=== PATIENT | male | born 1965 | race Caucasian/White ===

== ENCOUNTER 2019-06-13 23:00 | Emergency (ER) | payer BC ==
[2019-06-13 23:06] VITALS: RESP 18
[2019-06-13] MEDS ORDERED: SODIUM CHLORIDE 0.9% 1,000 ML IV STA (23:16)
[2019-06-13] MEDS ORDERED: ONDANSETRON 4 MG/2 ML VIAL IVP STA (23:16)
[2019-06-13] MEDS ORDERED: SODIUM CHLORIDE 0.9% 500 ML 500 ML IV STA (23:16)
[2019-06-13] MEDS ORDERED: HYDROmorphone 0.5 MG/0.5 ML SYRINGE IVP STA (23:16)
[2019-06-13] MEDS ORDERED: KETOROLAC 30 MG/ML 1 ML VIAL IVP STA (23:16)
--- NOTE | 2019-06-13 23:26 | ED ---
Abdominal Pain HPI - General Chief Complaint: Abdominal Pain Stated Complaint: Abd Pain Time Seen by Provider: 06/13/19 23:10 Source: patient Mode of arrival: wheelchair Limitations: no limitations - History of Present Illness Initial Comments: 53-year-old male patient presents to the emergency department today for evaluation of abdominal pain. Patient states yesterday he started having pain to the left flank region which is now wrapped around to his midepigastric region and the right lower quadrant. Patient states he has been nauseated and did vom it twice this evening. He denies any fever or chills. Denies any chest pain or shortness of breath. He denies any hematuria, dysuria, urinary frequency, urinary urgency, urinary retention. Denies any hematochezia or melena. Denies hematemesis. Patient does admit to drinking alcohol daily basis. Denies any street drug use. Patient denies any recent rash, diarrhea, constipation, numbness, tingling, dizziness, weakness, headache, visual changes, or any other complaints. - Related Data Previous Rx's Medication Instructions Recorded Hydrocodone/Acetaminophen [Conifer 1 tab PO Q6HR PRN #12 tab 06/14/19 5-325] Ibuprofen [Motrin] 600 mg PO Q8HR PRN #30 tab 06/14/19 Ondansetron [Zofran ODT] 4 mg PO Q8HR PRN #10 tab 06/14/19 Tamsulosin HCl [Flomax] 0.4 mg PO DAILY #7 cap 06/14/19 Allergies Allergy/AdvReac Type Severity Reaction Status Date / Time No Known Allergies Allergy Verified 06/13/19 23:35 Review of Systems ROS Statement: Those systems with pertinent positive or pertinent negative responses have been documented in the HPI. ROS Other: All systems not noted in ROS Statement are negative. Past Medical History Past Medical History: No Reported History History of Any Multi-Drug Resistant Organisms: None Reported Past Surgical History: Joint Replacement Additional Past Surgical History / Comment(s): right knee, Past Psychological History: No Psychological Hx Reported Smoking Status: Current every day smoker Past Alcohol Use History: Daily Past Drug Use History: None Reported General Exam Limitations: no limitations General appearance: alert, in no apparent distress, other (Physical well- developed, well-nourished adult male patient in no acute distress. Vital signs upon presentation are temperature 98.3F, pulse 96, respirations 18, blood pressure 168/94, pulse ox 98% on room air.) Eye exam: Present: normal appearance, PERRL, EOMI. Absent: scleral icterus, conjunctival injection, periorbital swelling ENT exam: Present: normal exam, normal oropharynx, mucous membranes moist Respiratory exam: Present: normal lung sounds bilaterally. Absent: respiratory distress, wheezes, rales, rhonchi, stridor Cardiovascular Exam: Present: regular rate, normal rhythm, normal heart sounds. Absent: systolic murmur, diastolic murmur, rubs, gallop, clicks GI/Abdominal exam: Present: soft, tenderness (Midepigastric tenderness), normal bowel sounds. Absent: distended, guarding, rebound, rigid Neurological exam: Present: alert, oriented X3, CN II-XII intact Psychiatric exam: Present: normal affect, normal mood Skin exam: Present: warm, dry, intact, normal color. Absent: rash Course Vital Signs 06/13/19 23:02 Temperature 98.3 F Pulse Rate 96 Respiratory 18 Rate Blood Pressure 168/94 O2 Sat by Pulse 98 Oximetry Medical Decision Making - Medical Decision Making 53-year-old male patient presented to the emergency department today for evaluation of left flank pain with midepigastric pain and left lower quadrant p ain. Physical examination did reveal midepigastric tenderness. Left CVA tenderness. Urinalysis showed no acute abnormalities. Labs reviewed and showed leukocytosis with a white blood cell count of 14.7. CT abdomen and pelvis was obtained and showed evidence for a 7 mm kidney stone on the left side at the UPJ. Patient was given IV medications and fluids here in the emergency department. Upon reevaluation he is resting comfortably. He'll be discharged with Flomax, pain medication, nausea medication. Is instructed to follow-up with urologist for recheck as soon as possible. Return parameters were discussed in detail. He verbalizes understanding and agrees with this plan. - Lab Data Result diagrams: 06/13/19 23:30 06/13/19 23:30 Lab Results 06/13/19 06/13/19 06/13/19 Range/Units 23:30 23:30 23:30 WBC 14.7 H (3.8-10.6) k/uL RBC 4.82 (4.30-5.90) m/uL Hgb 15.8 (13.0-17.5) gm/dL Hct 47.7 (39.0-53.0) % MCV 98.8 (80.0-100.0) fL MCH 32.7 (25.0-35.0) pg MCHC 33.1 (31.0-37.0) g/dL RDW 12.3 (11.5-15.5) % Plt Count 251 (150-450) k/uL Neutrophils % 83 % Lymphocytes % 7 % Monocytes % 5 % Eosinophils % 1 % Basophils % 3 % Neutrophils # 12.2 H (1.3-7.7) k/uL Lymphocytes # 1.0 (1.0-4.8) k/uL Monocytes # 0.8 (0-1.0) k/uL Eosinophils # 0.1 (0-0.7) k/uL Basophils # 0.4 H (0-0.2) k/uL Sodium 138 (137-145) mmol/L Potassium 4.3 (3.5-5.1) mmol/L Chloride 104 (98-107) mmol/L Carbon Dioxide 24 (22-30) mmol/L Anion Gap 10 mmol/L BUN 10 (9-20) mg/dL Creatinine 1.03 (0.66-1.25) mg/dL Est GFR (CKD-EPI)AfAm >90 (>60 ml/min/1.73 sqM) Est GFR (CKD-EPI)NonAf 83 (>60 ml/min/1.73 sqM) Glucose 128 H (74-99) mg/dL Calcium 9.0 (8.4-10.2) mg/dL Total Bilirubin 0.8 (0.2-1.3) mg/dL AST 44 (17-59) U/L ALT 51 (21-72) U/L Alkaline Phosphatase 109 (38-126) U/L Total Protein 8.0 (6.3-8.2) g/dL Albumin 4.6 (3.5-5.0) g/dL Amylase 39 (30-110) U/L Lipase 33 (23-300) U/L Urine Color Yellow Urine Appearance Clear (Clear) Urine pH 6.5 (5.0-8.0) Ur Specific [place] 1.018 (1.001-1.035) Urine Protein Trace H (Negative) Urine Glucose (UA) Negative (Negative) Urine Ketones 2+ H (Negative) Urine Blood Negative (Negative) Urine Nitrite Negative (Negative) Urine Bilirubin Negative (Negative) Urine Urobilinogen <2.0 (<2.0) mg/dL Ur Leukocyte Esterase Negative (Negative) - Radiology Data Radiology results: report reviewed, image reviewed CT abdomen and pelvis is obtained. Report was reviewed in its entirety. Impression by Dr. Barbour shows obstructed calculus at the left ureteropelvic junction with left-sided hydronephrosis and perinephric edema. No other renal calculus seen. Normal appendix. Disposition Clinical Impression: Kidney stone on left side Disposition: HOME SELF-CARE Condition: Good Instructions (If sedation given, give patient instructions): Kidney Stones (ED) Additional Instructions: Increase fluids. Take medications as directed. Follow-up with urology for furt her evaluation as soon as possible. Follow up here primary care physician for recheck in 1-2 days. Return to the emergency department immediately for any new, worsening, or concerning symptoms. Prescriptions: Tamsulosin HCl [Flomax] 0.4 mg PO DAILY #7 cap Ibuprofen [Motrin] 600 mg PO Q8HR PRN #30 tab PRN Reason: Pain Hydrocodone/Acetaminophen [Conifer 5-325] 1 tab PO Q6HR PRN #12 tab PRN Reason: Pain Ondansetron [Zofran ODT] 4 mg PO Q8HR PRN #10 tab PRN Reason: Nausea Is patient prescribed a controlled substance at d/c from ED?: Yes When asked, does pt state using other controlled substances?: No If prescribed controlled substance>3 days was MAPS reviewed?: Prescribed <3 Days If opioid is for acute pain is fill amount 7 days or less?: Yes If Rx opioid, was Start Talking consent form obtained?: Yes Referrals: Jt Pina MD [STAFF PHYSICIAN] - 1-2 days Time of Disposition: 00:58
[2019-06-13 23:42] LABS: Appearance,Urine Clear (Clear); Basophils # (A) 0.4 k/uL (0-0.2); Basophils % (A) 3 %; Bilirubin,Urine Negative (Negative); Blood,Urine Negative (Negative); Color,Urine Yellow; Eosinophils # (A) 0.1 k/uL (0-0.7); Eosinophils % (A) 1 %; Glucose,Urine (UA) Negative (Negative); HCT 47.7 % (39.0-53.0); HGB 15.8 gm/dL (13.0-17.5); Ketones,Urine 2+ (Negative); Leukocyte Esterase,Urine Negative (Negative); Lymphocytes % (A) 7 %; MCH 32.7 pg (25.0-35.0); MCHC 33.1 g/dL (31.0-37.0); MCV 98.8 fL (80.0-100.0); Mean Platelet Volume 7.6; Monocytes # (A) 0.8 k/uL (0-1.0); Monocytes % (A) 5 %; Neutrophils # (A) 12.2 k/uL (1.3-7.7); Neutrophils % (A) 83 %; Nitrite,Urine Negative (Negative); PH, Urine 6.5 (5.0-8.0); Platelet Count 251 k/uL (150-450); Protein,Urine Trace (Negative); RBC 4.82 m/uL (4.30-5.90); RDW 12.3 % (11.5-15.5); Specific Gravity,Urine 1.018 (1.001-1.035); Urobilinogen,Urine <2.0 mg/dL (<2.0); WBC 14.7 k/uL (3.8-10.6)
[2019-06-13 23:50] LABS: ALT 51 U/L (21-72); AST 44 U/L (17-59); African American GFR (CKD) >90 (>60 ml/min/1.73 sqM); Albumin 4.6 g/dL (3.5-5.0); Alkaline Phosphatase 109 U/L (38-126); Amylase 39 U/L (30-110); Anion Gap 10 mmol/L; Blood Urea Nitrogen 10 mg/dL (9-20); Carbon Dioxide 24 mmol/L (22-30); Chloride 104 mmol/L (98-107); Glucose 128 mg/dL (74-99); Potassium 4.3 mmol/L (3.5-5.1); Sodium 138 mmol/L (137-145); Total Bilirubin 0.8 mg/dL (0.2-1.3)
--- NOTE | 2019-06-14 00:45 | CT ---
EXAMINATION TYPE: CT abdomen pelvis w con DATE OF EXAM: 06/14/2019 COMPARISON: None HISTORY: Left Flank pain CT DLP: 841.2 mGycm Automated exposure control for dose reduction was used. TECHNIQUE: Helical acquisition of images was performed from the lung bases through the pelvis. CONTRAST: Performed without Oral Contrast and with IV Contrast, patient injected with 100 mL of Isovue 300. FINDINGS: There is mild subsegmental atelectasis at the lung bases. Heart size is normal. There is no pericardi al effusion. There is no pleural effusion. Liver spleen stomach pancreas gallbladder appear normal. Bile ducts are not dilated. There is no adrenal mass. Kidneys show satisfactory contrast opacification. There is left-sided hydro nephrosis. There is 7 mm calculus at the left ureteropelvic junction. There is perinephric edema. Rig ht kidney appears normal with no sign of obstruction. There is no retroperitoneal adenopathy. Bladder distends smoothly. There is prostatic calcification. There is no inguinal hernia. There is no free fluid in the pelvis. There is no mesenteric edema. Ther e is no ascites or free air. The appendix appears normal. There is no sign of a bowel obstruction. Lumbar vertebra have normal alignment. There is no compression fracture. Posterior elements are intac t. Bony pelvis is intact. IMPRESSION: OBSTRUCTING CALCULUS AT THE LEFT URETEROPELVIC JUNCTION WITH LEFT-SIDED HYDRONEPHROSIS AND PERINEPHRI C EDEMA. NO OTHER RENAL CALCULUS SEEN. NORMAL APPENDIX.
[2019-06-14] MEDS ORDERED: TAMSULOSIN 0.4 MG CAP.ER.24H PO STA (00:55)
[2019-06-14] MEDS ORDERED: IBUPROFEN 600 MG STARTER PACK 4 TAB BTL PO STA (00:56)
[2019-06-14] MEDS ORDERED: ACET/COD 300 MG/30 MG STARTER PACK 6 TAB BTL PO STA (00:56)
[2019-06-14] MEDS ORDERED: ONDANSETRON 4 MG ODT STARTER PACK 2 TAB BTL PO STA (00:58)
[2019-06-14 01:36] VITALS: BP 158/78; PULSE 20; TEMP 98
== END 2019-06-14 01:35 | disposition home or self-care (01) ==
LOC: EC 23:00
DX: N13.2 Hydronephrosis with renal and ureteral calculous obstruction (principal); D72.829 Elevated white blood cell count, unspecified; F17.200 Nicotine dependence, unspecified, uncomplicated; Z96.651 Presence of right artificial knee joint
CPT/HCPCS: 36415; 80053; 82150; 83690; 85025; 81003; 74177; 96374; 96375 ×2; 96361; 99284; J2405; J1885; S0119; J1170; Q9967

== ENCOUNTER → 2019-07-08 | Outpatient (CLI) | payer BC ==
--- NOTE | 2019-07-08 12:49 | XR ---
EXAMINATION TYPE: XR abdomen 1V DATE OF EXAM: 07/08/2019 COMPARISON: CT scan 06/14/2019 HISTORY: Follow-up lithotripsy TECHNIQUE: One view abdominal series FINDINGS: The osseous structures are intact. The bowel gas pattern is nonspecific. Arthropathy of the hips. A punctate calcifications in the left hemipelvis are too small to characterize.. IMPRESSION: 1. Nonspecific abdomen. Punctate calcifications in the left hemipelvis are felt to be outside the co urse of the ureter based on the previous CT scan.
== END | disposition home or self-care (01) ==
LOC: RADXRMAIN 12:23
PROVIDERS: ATTEND Urology
DX: N28.89 Other specified disorders of kidney and ureter (principal)
CPT/HCPCS: 74018

== ENCOUNTER 2022-06-29 12:55 | Emergency (ER) | payer BC, OTHER ==
[2022-06-29 13:50] VITALS: TEMP 97.8
--- NOTE | 2022-06-29 14:24 | XR ---
EXAMINATION TYPE: XR hand complete 3 views LT DATE OF EXAM: 06/29/2022 Comparison: None Clinical History: 56-year-old male pain after saw Injury Findings: Markedly comminuted fractures of the mid and distal aspects of the second and third distal phalanges with associated soft tissue deformity. Moderate osteophytic change of the first CMC joint. No retaine d radiopaque foreign body seen. Impression: Markedly comminuted fractures of the mid and distal aspects of the second and third distal phalanges with associated soft tissue deformity relating to saw blade injury. No retained radiopaque foreign rgio dy seen.
[2022-06-29] MEDS ORDERED: HYDROmorphone 1 MG/ML 1 ML SYRINGE IM STA (16:17)
[2022-06-29] MEDS ORDERED: GELATIN SPONGE,ABSORB (LARGE) 1 EACH SPONGE TOPICAL STA (16:17)
[2022-06-29] MEDS ORDERED: LIDOCAINE 1% INJ 10MG/ML (30 ML VIAL-PF) SQ ONE (16:17)
[2022-06-29] MEDS ORDERED: DIPH,PERTUS(ACELL)TETVAC-LF 0.5 ML VIAL IM ONE (17:29)
[2022-06-29] MEDS ORDERED: Acetaminophen-Codeine 300-30mg TAB PO STA (17:47)
[2022-06-29] MEDS ORDERED: CEPHALEXIN 500 MG CAP PO STA (18:05)
[2022-06-29] MEDS ORDERED: ACET/COD 300 MG/30 MG STARTER PACK 6 TAB BTL PO STA (18:05)
--- NOTE | 2022-06-29 18:06 | ED ---
Wound/Laceration HPI - General Chief Complaint: Wound/Laceration Stated Complaint: finger lacs Time Seen by Provider: 06/29/22 16:07 Source: patient Mode of arrival: ambulatory Limitations: no limitations - History of Present Illness Initial Comments: Patient is a 56-year-old male presenting with chief complaint of table saw injury to the left hand. Patient has multiple lacerations to the second and third digits. This occurred around 12:30 PM. Patient is not on any blood thinners. Leading is well controlled upon presentation. Patient does not re member when his last tetanus shot was. - Related Data Previous Rx's Medication Instructions Recorded Hydrocodone/Acetaminophen [Holder 1 tab PO Q6HR PRN #12 tab 06/14/19 5-325] Ibuprofen [Motrin] 600 mg PO Q8HR PRN #30 tab 06/14/19 Ondansetron [Zofran ODT] 4 mg PO Q8HR PRN #10 tab 06/14/19 Tamsulosin HCl [Flomax] 0.4 mg PO DAILY #7 cap 06/14/19 Cephalexin [Keflex] 500 mg PO Q6HR 5 Days #20 cap 06/29/22 Allergies Allergy/AdvReac Type Severity Reaction Status Date / Time No Known Allergies Allergy Verified 06/29/22 13:50 Review of Systems ROS Statement: Those systems with pertinent positive or pertinent negative responses have been documented in the HPI. ROS Other: All systems not noted in ROS Statement are negative. Past Medical History Past Medical History: No Reported History History of Any Multi-Drug Resistant Organisms: None Reported Past Surgical History: Joint Replacement Additional Past Surgical History / Comment(s): right knee, Past Psychological History: No Psychological Hx Reported Smoking Status: Current every day smoker Past Alcohol Use History: Daily Past Drug Use History: None Reported General Exam Limitations: no limitations General appearance: alert, in no apparent distress Head exam: Present: atraumatic, normocephalic, normal inspection Eye exam: Present: normal appearance Neck exam: Present: normal inspection Extremities exam: Present: other (Trauma to the left second and third digits, several lacerations and deformities noted) Neurological exam: Present: alert, oriented X3, CN II-XII intact Psychiatric exam: Present: normal affect, normal mood Expanded Type of lesion: Present: laceration (Several lacerations to the distal ends of the left second and third digits) Course Vital Signs 06/29/22 06/29/22 13:41 18:28 Temperature 97.8 F 97.8 F Pulse Rate 99 82 Respiratory 20 16 Rate Blood Pressure 154/93 164/94 O2 Sat by Pulse 99 97 Oximetry Medical Decision Making - Medical Decision Making Patient is a 56-year-old male presenting for evaluation of injury to the left second and third digits with a table saw. On presentation bleeding is well- controlled, no blood thinners. The ends of the affected digits are mangled. X- ray was taken and shows severe comminuted fractures and soft tissue deformity by my interpretation. Case was discussed with orthopedic on-call Dr. Pete, he advised thorough washout and following up in the office tomorrow morning or Monday at the latest, likely will result in partial amputation. Tetanus shot was updated here. Patient was numbed using 1% lidocaine without epi. 1 L sterile water was used to irrigate the wounds. 4 simple interrupted sutures were used to approximate the soft tissue. Remainder of wounds were covered with Gelfoam and wound was dressed. Patient was started on Keflex and provided with pain medication for home. Educated on wound care. Instructed patient to call orthopedic office tomorrow morning to arrange appointment with hand surgeon. Follow-up with PCP. Report back to ER with any new or worsening symptoms. Discussed return parameters and answered all questions. Patient conveyed verbal understanding and agreed to the plan. I discussed this case in detail with my attending Dr. 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 Call the office tomorrow morning, they will see you either tomorrow or no later than Monday. Take antibiotic as prescribed. Take Motrin and Tylenol as needed for pain control. You have been provided Tylenol 3 for breakthrough pain, do not combine with [id number] Tylenol. Report back to ER with any new or worsening symptoms. Keep the wound clean, dry, and covered. Prescriptions: Cephalexin [Keflex] 500 mg PO Q6HR 5 Days #20 cap Is patient prescribed a controlled substance at d/c from ED?: No Referrals: Migdalia Novoa, [Primary Care Provider] - 1-2 days Marcella Slater DO [Doctor of Osteopathic Medicine] - 1-2 days Time of Disposition: 18:08
[2022-06-29 18:38] VITALS: BP 164/94; PULSE 82; RESP 16
== END 2022-06-29 19:01 | disposition home or self-care (01) ==
LOC: EC 12:55
DX: S68.121A Partial traumatic metacarpophalangeal amputation of left index finger, initial encounter (principal); S68.123A Partial traumatic metacarpophalangeal amputation of left middle finger, initial encounter; F17.290 Nicotine dependence, other tobacco product, uncomplicated; Z23 Encounter for immunization; W27.0XXA Contact with workbench tool, initial encounter; Y92.69 Other specified industrial and construction area as the place of occurrence of the external cause; Y99.0 Civilian activity done for income or pay
CPT/HCPCS: 12001 ×2; 99283 ×2; 73130; 90715; 90471; J2001